=== PATIENT | male | born 1935 | race Caucasian/White ===

== ENCOUNTER 2016-10-26 18:08 | Emergency (ER) | payer OTHER ==
[2016-10-26 18:39] VITALS: TEMP 98.8
[2016-10-26 18:49] LABS: BASOPHILS % (AUTO) 0 % (0-3); EOSINOPHILS % (AUTO) 1 % (0-9); HEMATOCRIT 35 % (39-53); MEAN CORPUSCULAR HGB CONC 34.4 gm/dl (32.0-36.0); MEAN CORPUSCULAR VOLUME 86 fL (80-100); MONOCYTES % (AUTO) 9.9 % (0-12); NEUTROPHILS % (AUTO) 76.5 % (37-80)
[2016-10-26 18:57] LABS: CALCIUM 8.2 mg/dl (8.5-10.1); POTASSIUM 3.8 mMol/L (3.5-5.1)
[2016-10-26 19:26] VITALS: BP 144/80; PULSE 75; RESP 16; O2SAT 93
== END 2016-10-26 19:55 | disposition home or self-care (01) | DRG 641 ==
LOC: ED 18:08
DX: E87.1 Hypo-osmolality and hyponatremia (principal); I25.10 Atherosclerotic heart disease of native coronary artery without angina pectoris
CPT/HCPCS: 36415; 80048; 85025; 93005; 99282; 99284

== ENCOUNTER 2016-10-28 11:56 | Emergency (ER) | payer OTHER ==
[2016-10-28 12:14] VITALS: RESP 18; TEMP 98
[2016-10-28 13:44] LABS: ALBUMIN 2.7 gm/dl (3.4-5.0); CALCIUM 8.2 mg/dl (8.5-10.1); POTASSIUM 3.7 mMol/L (3.5-5.1)
[2016-10-28 14:33] VITALS: BP 150/82; PULSE 62; O2SAT 97
== END 2016-10-28 14:17 | disposition home or self-care (01) | DRG 153 ==
LOC: ED 11:56
DX: J11.1 Influenza due to unidentified influenza virus with other respiratory manifestations (principal)
CPT/HCPCS: 36415; 80053; 99283

== ENCOUNTER 2016-10-30 03:18 | Inpatient (IN) | payer OTHER ==
[2016-10-30] MEDS ORDERED: ALBUTEROL NEB SOL 2.5MG/3ML 1 VIAL SOL NEB ONE (04:06)
[2016-10-30 04:13] LABS: APPEARANCE,URINE Clear; BILIRUBIN,URINE NEGATIVE (NEGATIVE); COLOR,URINE Yellow; GLUCOSE, URINE (UA) NEGATIVE (NEGATIVE); KETONES,URINE NEGATIVE (NEGATIVE); LEUKOCYTE ESTERASE ,URINE NEGATIVE (NEGATIVE); NITRATE,URINE NEGATIVE (NEGATIVE); OCCULT BLOOD,URINE NEGATIVE (NEG-TRACE)
[2016-10-30 04:14] LABS: BASOPHILS % (AUTO) 1 % (0-3); EOSINOPHILS % (AUTO) 0 % (0-9); HEMATOCRIT 37 % (39-53); MEAN CORPUSCULAR HGB CONC 35.7 gm/dl (32.0-36.0); MEAN CORPUSCULAR VOLUME 84 fL (80-100); MONOCYTES % (AUTO) 10.8 % (0-12); NEUTROPHILS % (AUTO) 72.2 % (37-80)
[2016-10-30] MEDS ORDERED: DEXTROSE 50% 1 VIAL SOL IV ONE ×2 (04:20→04:21)
[2016-10-30] MEDS: SODIUM CHLORIDE 0.9% FLUSH 10 ML SOL IV PRN ×3 (04:23→23:21)
[2016-10-30 04:26] LABS: ALBUMIN 2.9 gm/dl (3.4-5.0); ALT 24 IU/L (14-63); CALCIUM 8.4 mg/dl (8.5-10.1); GLOM FILT RATE 56 mL/min (>60); SODIUM 129 mMol/L (136-145)
[2016-10-30] MEDS ORDERED: ALBUTEROL/IPRATROPIUM 1 VIAL SOL ONE (04:28)
[2016-10-30 04:31] LABS: RBC,URINE 0-1 (0-3AV/HPF); WBC,URINE 0-1 (0-5AV/HPF)
[2016-10-30] MEDS ORDERED: SODIUM CHLORIDE/KCL 20MEQ 1,000 ML IV SCH (05:45)
[2016-10-30] MEDS ORDERED: DOCUSATE SODIUM 100 MG SGL PO PRN (05:50)
[2016-10-30] MEDS ORDERED: OMEPRAZOLE 20 MG CAPSULE PO PRN (05:50)
[2016-10-30] MEDS ORDERED: ATORVASTATIN 10 MG TAB PO SCH ×2 (06:00→21:00)
[2016-10-30] MEDS ORDERED: PANTOPRAZOLE SODIUM 40 MG ECT PO PRN (06:14)
[2016-10-30] MEDS ORDERED: DEXTROSE 50% 1 VIAL SOL IV PRN (08:59)
[2016-10-30] MEDS ORDERED: DOXYCYCLINE 100 MG TAB PO SCH (09:00)
[2016-10-30] MEDS ORDERED: HYDROCHLOROTHIAZIDE 25 MG TAB PO SCH (09:00)
[2016-10-30] MEDS: LISINOPRIL 20 MG TAB PO SCH (09:26)
[2016-10-30] MEDS: POTASSIUM CHLORIDE 10 MEQ TER PO SCH ×2 (09:26→20:57)
[2016-10-30] MEDS: METOPROLOL TARTRATE 50 MG TAB PO SCH ×2 (09:26→20:57)
[2016-10-30] MEDS ORDERED: MAGNESIUM SULFATE 5 GM/10 ML SOL IV ONE (11:15)
[2016-10-30] MEDS: MAGNESIUM OXIDE 400 MG TAB PO SCH ×4 (12:22→23:20)
[2016-10-30] MEDS ORDERED: WARFARIN SODIUM 5 MG TAB PO SCH (18:00)
[2016-10-30] MEDS ORDERED: WARFARIN SODIUM 7.5 MG TAB PO SCH (18:00)
[2016-10-31 07:22] LABS: BASOPHILS % (AUTO) 1 % (0-3); EOSINOPHILS % (AUTO) 1 % (0-9); HEMATOCRIT 39 % (39-53); MEAN CORPUSCULAR HGB CONC 35.2 gm/dl (32.0-36.0); MEAN CORPUSCULAR VOLUME 86 fL (80-100); MONOCYTES % (AUTO) 9.8 % (0-12); NEUTROPHILS % (AUTO) 63.9 % (37-80)
[2016-10-31 07:39] LABS: CALCIUM 8.3 mg/dl (8.5-10.1); MAGNESIUM 1.8 mg/dl (1.8-2.4)
[2016-10-31] MEDS: POTASSIUM CHLORIDE 10 MEQ TER PO SCH ×2 (09:19→21:43)
[2016-10-31] MEDS: METOPROLOL TARTRATE 50 MG TAB PO SCH ×2 (09:20→21:43)
[2016-10-31] MEDS: FUROSEMIDE 20 MG TAB PO SCH (09:20)
[2016-10-31] MEDS: METFORMIN HYDROCHLORIDE 500 MG TAB PO SCH ×2 (09:21→21:43)
[2016-10-31] MEDS: LISINOPRIL 20 MG TAB PO SCH (09:21)
[2016-10-31] MEDS ORDERED: WARFARIN SODIUM 7.5 MG TAB PO SCH (18:00)
[2016-10-31] MEDS ORDERED: WARFARIN SODIUM 5 MG TAB PO ONE (18:00)
[2016-10-31 21:40] VITALS: TEMP 97
[2016-11-01 07:13] LABS: BASOPHILS % (AUTO) 1 % (0-3); EOSINOPHILS % (AUTO) 2 % (0-9); HEMATOCRIT 39 % (39-53); MEAN CORPUSCULAR HGB CONC 34.4 gm/dl (32.0-36.0); MEAN CORPUSCULAR VOLUME 86 fL (80-100); MONOCYTES % (AUTO) 10.2 % (0-12); NEUTROPHILS % (AUTO) 60.8 % (37-80)
[2016-11-01 07:17] LABS: CALCIUM 8.5 mg/dl (8.5-10.1); POTASSIUM 4.6 mMol/L (3.5-5.1)
[2016-11-01 08:20] VITALS: BP 153/88; PULSE 63; RESP 20
[2016-11-01] MEDS: POTASSIUM CHLORIDE 10 MEQ TER PO SCH (08:40)
[2016-11-01] MEDS: METOPROLOL TARTRATE 50 MG TAB PO SCH (08:40)
[2016-11-01] MEDS: METFORMIN HYDROCHLORIDE 500 MG TAB PO SCH (08:41)
[2016-11-01] MEDS: LISINOPRIL 20 MG TAB PO SCH (08:41)
[2016-11-01] MEDS: FUROSEMIDE 20 MG TAB PO SCH (08:54)
[2016-11-01 09:59] VITALS: O2SAT 98
== END 2016-11-01 10:45 | disposition home or self-care (01) | DRG 637 ==
LOC: ED 03:18 → ACUTE CARE 05:04
PROVIDERS: ADMIT Emergency Medicine; ATTEND Emergency Medicine
PROC: F02Z1ZZ Dressing Assessment (ICD-10-PCS; principal; 2016-10-30)
PROC: F02Z3ZZ Grooming/Personal Hygiene Assessment (ICD-10-PCS; 2016-10-30)
PROC: F02Z0ZZ Bathing/Showering Assessment (ICD-10-PCS; 2016-10-30)
PROC: F01ZDZZ Gait and/or Balance Assessment (ICD-10-PCS; 2016-10-30)
PROC: F01ZBZZ Bed Mobility Assessment (ICD-10-PCS; 2016-10-30)
PROC: F01ZCZZ Transfer Assessment (ICD-10-PCS; 2016-10-30)
DX: E11.649 Type 2 diabetes mellitus with hypoglycemia without coma (principal); J18.9 Pneumonia, unspecified organism; E46 Unspecified protein-calorie malnutrition; E88.09 Other disorders of plasma-protein metabolism, not elsewhere classified; I50.9 Heart failure, unspecified; R54 Age-related physical debility; Z79.84 Long term (current) use of oral hypoglycemic drugs; F32.9 Major depressive disorder, single episode, unspecified; I95.1 Orthostatic hypotension; Z68.24 Body mass index [BMI] 24.0-24.9, adult; R41.0 Disorientation, unspecified; E86.0 Dehydration; E87.1 Hypo-osmolality and hyponatremia; I25.10 Atherosclerotic heart disease of native coronary artery without angina pectoris; I48.91 Unspecified atrial fibrillation
CPT/HCPCS: 36415; 71020; 80048; 80053; 81001; 82962; 83735; 83880; 84484; 85025; 85610; 93005; 94760; 96374; 99222; 99285; J7620

== ENCOUNTER 2017-08-19 12:26 | Emergency (ER) | payer MEDICARE, BC, OTHER ==
[2017-08-19 12:46] LABS: BASOPHILS % (AUTO) 1 % (0-3); EOSINOPHILS % (AUTO) 2 % (0-9); HEMATOCRIT 41 % (39-53); MEAN CORPUSCULAR VOLUME 85 fL (80-100); MONOCYTES % (AUTO) 9.5 % (0-12); NEUTROPHILS % (AUTO) 63.5 % (37-80)
[2017-08-19 13:00] LABS: ALBUMIN 3.6 gm/dl (3.4-5.0); CALCIUM 8.6 mg/dl (8.5-10.1); POTASSIUM 4.1 mMol/L (3.5-5.1)
[2017-08-19 13:40] VITALS: BP 174/83; PULSE 77; RESP 16; TEMP 98.2; O2SAT 98
== END 2017-08-19 13:58 | disposition home or self-care (01) | DRG 948 ==
LOC: ED 12:26
DX: R41.0 Disorientation, unspecified (principal)
CPT/HCPCS: 70450; 80053; 85025; 85610; 99284

== ENCOUNTER 2017-09-14 09:00 | Emergency (ER) | payer MEDICARE, BC, OTHER ==
[2017-09-14 09:06] VITALS: TEMP 97.5
[2017-09-14] MEDS ORDERED: ACETAMINOPHEN 325 MG PO ONE (09:11)
[2017-09-14 09:34] LABS: BASOPHILS % (AUTO) 1 % (0-3); EOSINOPHILS % (AUTO) 2 % (0-9); HEMATOCRIT 40 % (39-53); MEAN CORPUSCULAR HGB CONC 31.3 gm/dl (32.0-36.0); MEAN CORPUSCULAR VOLUME 87 fL (80-100); MONOCYTES % (AUTO) 8.5 % (0-12); NEUTROPHILS % (AUTO) 66.5 % (37-80)
[2017-09-14 09:41] VITALS: RESP 20
[2017-09-14 09:49] LABS: APPEARANCE,URINE Clear; BILIRUBIN,URINE NEGATIVE (NEGATIVE); COLOR,URINE Yellow; GLUCOSE, URINE (UA) NEGATIVE (NEGATIVE); KETONES,URINE TRACE (NEGATIVE); LEUKOCYTE ESTERASE ,URINE NEGATIVE (NEGATIVE); NITRATE,URINE NEGATIVE (NEGATIVE); OCCULT BLOOD,URINE TRACE INTACT (NEG-TRACE); PH,URINE 5.5
[2017-09-14 09:51] LABS: ALBUMIN 3.3 gm/dl (3.4-5.0); ALKALINE PHOSPHATASE 84 IU/L (46-116); ALT 31 IU/L (14-63); AST 28 IU/L (15-37); BILIRUBIN,TOTAL 0.6 mg/dl (0.2-1.0); BLOOD UREA NITROGEN 20 mg/dl (7-18); CALCIUM 8.4 mg/dl (8.5-10.1); CREATININE 1.37 mg/dl (0.80-1.30); GLOM FILT RATE 50 mL/min (>60); GLUCOSE 207 mg/dl (74-106); POTASSIUM 4.4 mMol/L (3.5-5.1); SODIUM 139 mMol/L (136-145)
[2017-09-14 09:59] LABS: RBC,URINE 0-1 (0-3AV/HPF)
[2017-09-14 10:00] LABS: WBC,URINE 0-1 (0-5AV/HPF)
[2017-09-14] MEDS ORDERED: SODIUM CHLORIDE 0.9% 1000ML 1,000 ML IV SCH (10:30)
[2017-09-14] MEDS ORDERED: IBUPROFEN 200 MG/10 ML SUS PO ONE (10:49)
[2017-09-14] MEDS ORDERED: IBUPROFEN 600 MG TAB ONE (11:16)
[2017-09-14 13:01] VITALS: O2SAT 98
[2017-09-14 13:02] VITALS: BP 166/86; PULSE 81
== END 2017-09-14 12:50 | disposition home or self-care (01) | DRG 641 ==
LOC: ED 09:00
DX: E86.0 Dehydration (principal); E11.9 Type 2 diabetes mellitus without complications; R41.0 Disorientation, unspecified; R51 Headache; Z79.01 Long term (current) use of anticoagulants
CPT/HCPCS: 70450; 80053; 81001; 84484; 85025; 85610; 85730; 87088; 93005; 96365; 96366; 99284; 99291; A9270-GY

== ENCOUNTER 2017-09-28 14:54 | Observation (INO) | payer MEDICARE, BC, OTHER ==
[2017-09-28 15:44] LABS: BASOPHILS % (AUTO) 1 % (0-3); EOSINOPHILS % (AUTO) 1 % (0-9); HEMATOCRIT 41 % (39-53); HEMOGLOBIN 13.2 gm/dl (13.5-17.7); LYMPHOCYTES % (AUTO) 25.3 % (10-50); MEAN CORPUSCULAR HEMOGLOBIN 27.7 pg (27.0-32.0); MEAN CORPUSCULAR VOLUME 87 fL (80-100); MONOCYTES % (AUTO) 9.5 % (0-12); NEUTROPHILS % (AUTO) 63.1 % (37-80)
[2017-09-28 15:53] LABS: CALCIUM 8.4 mg/dl (8.5-10.1); CARBON DIOXIDE 27.6 mEq/L (21-32); CREATININE 1.73 mg/dl (0.80-1.30); POTASSIUM 3.9 mMol/L (3.5-5.1)
[2017-09-28] MEDS: SODIUM CHLORIDE 0.9% 1000ML 1,000 ML IV SCH (16:45)
[2017-09-28] MEDS: NOVOLOG FLEXPEN SC SCH ×2 (17:52→21:34)
[2017-09-28 20:30] VITALS: RESP 18
[2017-09-28] MEDS ORDERED: ATORVASTATIN 10 MG TAB PO SCH (21:00)
[2017-09-28] MEDS ORDERED: METOPROLOL TARTRATE 50 MG TAB PO SCH (21:00)
[2017-09-29] MEDS: SODIUM CHLORIDE 0.9% 1000ML 1,000 ML IV SCH (02:49)
[2017-09-29 07:51] VITALS: BP 158/78; PULSE 71; TEMP 97.4; O2SAT 97
[2017-09-29] MEDS ORDERED: GLIPIZIDE 10 MG TABLET PO SCH (08:30)
[2017-09-29] MEDS ORDERED: LISINOPRIL 20 MG TAB PO SCH (09:00)
[2017-09-29] MEDS ORDERED: CHLORTHALIDONE 25 MG PO SCH (09:00)
[2017-09-29] MEDS ORDERED: METFORMIN HYDROCHLORIDE 500 MG TAB PO SCH (09:00)
[2017-09-29] MEDS ORDERED: WARFARIN SODIUM 5 MG TAB PO SCH (18:00)
== END 2017-09-29 08:40 | disposition home or self-care (01) | DRG 641 ==
LOC: ED 14:54 → ACUTE CARE 16:47 → UNDOADMOB 16:47 → ACUTE CARE 17:35
PROVIDERS: ADMIT Family Medicine; ATTEND Family Medicine
DX: E86.0 Dehydration (principal); R20.0 Anesthesia of skin; R79.89 Other specified abnormal findings of blood chemistry
CPT/HCPCS: 36415; 70450; 80048; 82962; 85025; 85610; 85730; 93005; 99282; A9270-GY

== ENCOUNTER 2018-09-18 09:11 | Inpatient (IN) | payer OTHER ==
[2018-09-18] MEDS: SODIUM CHLORIDE 0.9% FLUSH 10 ML SOL IV PRN (17:25)
[2018-09-18] MEDS ORDERED: OMEPRAZOLE 20 MG CAPSULE PO PRN (17:26)
[2018-09-18] MEDS ORDERED: ALBUTEROL NEB SOL 2.5MG/3ML 1 VIAL SOL NEB PRN (17:29)
[2018-09-18] MEDS: SODIUM CHLORIDE 0.9% 1000ML 1,000 ML IV SCH (17:30)
[2018-09-18] MEDS: NOVOLOG FLEXPEN SC SCH ×2 (19:43→21:29)
[2018-09-18] MEDS: VICTOZA SQ SCH (19:47)
[2018-09-18] MEDS: WARFARIN SODIUM 5 MG TAB PO SCH (19:48)
[2018-09-18] MEDS: ATORVASTATIN 10 MG TAB PO SCH (19:49)
[2018-09-18] MEDS ORDERED: LIRAGLUTIDE SQ SCH (21:00)
[2018-09-18] MEDS: METOPROLOL TARTRATE 50 MG TAB PO SCH (21:26)
[2018-09-19] MEDS: SODIUM CHLORIDE 0.9% 1000ML 1,000 ML IV SCH ×2 (03:33→13:45)
[2018-09-19 07:26] LABS: CALCIUM 8.1 mg/dl (8.5-10.1); CREATININE 1.11 mg/dl (0.80-1.30); POTASSIUM 3.5 mMol/L (3.5-5.1)
[2018-09-19 07:44] LABS: INR 2.57 (0.86-1.12)
[2018-09-19] MEDS ORDERED: GUAIFENESIN 200 MG/10 ML SOL PO PRN (08:07)
[2018-09-19] MEDS: NOVOLOG FLEXPEN SC SCH ×4 (08:43→21:23)
[2018-09-19] MEDS: LOSARTAN POTASSIUM 50 MG TAB PO SCH (08:43)
[2018-09-19] MEDS: PANTOPRAZOLE SODIUM 40 MG ECT PO SCH (08:44)
[2018-09-19] MEDS: METFORMIN HYDROCHLORIDE 500 MG TAB PO SCH (08:44)
[2018-09-19] MEDS: GLIPIZIDE 5 MG TAB PO SCH ×2 (08:44→16:41)
[2018-09-19] MEDS: METOPROLOL TARTRATE 50 MG TAB PO SCH ×2 (08:44→20:19)
[2018-09-19] MEDS ORDERED: WARFARIN SODIUM 5 MG TAB PO SCH ×2 (09:00→18:00)
[2018-09-19] MEDS ORDERED: VALSARTAN 80 MG TAB PO SCH ×2 (09:00)
[2018-09-19] MEDS ORDERED: FLUTICASONE PROPIONATE SPR NAS PRN (09:00)
[2018-09-19] MEDS ORDERED: METFORMIN HYDROCHLORIDE 500 MG TAB PO SCH (09:00)
[2018-09-19] MEDS: ASPIRIN EC 81 MG PO SCH (16:41)
[2018-09-19] MEDS: VICTOZA SQ SCH (17:18)
[2018-09-19] MEDS: WARFARIN SODIUM 5 MG TAB PO SCH (18:46)
[2018-09-20] MEDS: SODIUM CHLORIDE 0.9% 1000ML 1,000 ML IV SCH (00:13)
[2018-09-20 07:40] LABS: INR 2.63 (0.86-1.12)
[2018-09-20 07:41] LABS: CALCIUM 7.6 mg/dl (8.5-10.1); CARBON DIOXIDE 26.6 mEq/L (21-32); CREATININE 1.02 mg/dl (0.80-1.30); POTASSIUM 3.3 mMol/L (3.5-5.1)
[2018-09-20] MEDS: NOVOLOG FLEXPEN SC SCH ×3 (08:25→17:47)
[2018-09-20] MEDS: LOSARTAN POTASSIUM 50 MG TAB PO SCH ×3 (08:46→11:49)
[2018-09-20] MEDS: GLIPIZIDE 5 MG TAB PO SCH ×2 (08:46→17:51)
[2018-09-20] MEDS: PANTOPRAZOLE SODIUM 40 MG ECT PO SCH (08:46)
[2018-09-20] MEDS: METOPROLOL TARTRATE 50 MG TAB PO SCH ×2 (08:46→20:34)
[2018-09-20] MEDS: METFORMIN HYDROCHLORIDE 500 MG TAB PO SCH (08:46)
[2018-09-20] MEDS: AMOXIL/CLAVULANATE 400/5 ML PDR PO SCH ×2 (09:19→20:32)
[2018-09-20] MEDS: POTASSIUM CHLORIDE 10 MEQ TER PO SCH ×3 (09:19→20:33)
[2018-09-20] MEDS: ACETAMINOPHEN 500 MG 500 MG TAB PO PRN (09:19)
[2018-09-20] MEDS: SODIUM CHLORIDE 0.9% FLUSH 10 ML SOL IV PRN (15:47)
[2018-09-20] MEDS: ASPIRIN EC 81 MG PO SCH ×2 (17:50→17:57)
[2018-09-20] MEDS: ATORVASTATIN 10 MG TAB PO SCH (17:51)
[2018-09-20] MEDS: VICTOZA SQ SCH (17:51)
[2018-09-20] MEDS: WARFARIN SODIUM 2.5 MG TAB PO SCH (17:52)
[2018-09-20] MEDS: AMLODIPINE 5 MG TAB PO SCH (17:55)
[2018-09-20] MEDS: SODIUM CHLORIDE 0.9% FLUSH 10 ML SOL IV SCH ×2 (18:59→20:36)
[2018-09-20] MEDS: FLUTICASONE PROPIONATE SPR NAS SCH (20:31)
[2018-09-21] MEDS: NOVOLOG FLEXPEN SC SCH ×5 (06:25→21:16)
[2018-09-21] MEDS: SODIUM CHLORIDE 0.9% FLUSH 10 ML SOL IV SCH ×4 (06:26→23:09)
[2018-09-21 07:41] LABS: BASOPHILS % (AUTO) 1 % (0-3); EOSINOPHILS % (AUTO) 1 % (0-9); HEMATOCRIT 39 % (39-53); HEMOGLOBIN 12.5 gm/dl (13.5-17.7); LYMPHOCYTES % (AUTO) 13.5 % (10-50); MEAN CORPUSCULAR HEMOGLOBIN 28.1 pg (27.0-32.0); MEAN CORPUSCULAR VOLUME 88 fL (80-100); MONOCYTES % (AUTO) 9.9 % (0-12)
[2018-09-21 07:51] LABS: CALCIUM 8.4 mg/dl (8.5-10.1); CARBON DIOXIDE 28.2 mEq/L (21-32); CREATININE 1.03 mg/dl (0.80-1.30); POTASSIUM 4.1 mMol/L (3.5-5.1)
[2018-09-21] MEDS ORDERED: SODIUM CHLORIDE 0.9% 1000ML 1,000 ML IV ONE (08:50)
[2018-09-21] MEDS: FLUTICASONE PROPIONATE SPR NAS SCH ×2 (09:03→20:10)
[2018-09-21] MEDS: LOSARTAN POTASSIUM 50 MG TAB PO SCH (09:03)
[2018-09-21] MEDS: METOPROLOL TARTRATE 50 MG TAB PO SCH ×2 (09:03→20:12)
[2018-09-21] MEDS: GLIPIZIDE 5 MG TAB PO SCH ×2 (09:03→16:56)
[2018-09-21] MEDS: PANTOPRAZOLE SODIUM 40 MG ECT PO SCH (09:04)
[2018-09-21] MEDS: AMOXIL/CLAVULANATE 400/5 ML PDR PO SCH ×2 (09:04→20:11)
[2018-09-21] MEDS: AMLODIPINE 5 MG TAB PO SCH (09:04)
[2018-09-21] MEDS: ACETAMINOPHEN 500 MG 500 MG TAB PO PRN (09:04)
[2018-09-21] MEDS: METFORMIN HYDROCHLORIDE 500 MG TAB PO SCH (09:04)
[2018-09-21] MEDS: SODIUM CHLORIDE 0.9% 1000ML 1,000 ML IV SCH ×3 (10:35→20:10)
[2018-09-21 14:04] LABS: INR 2.46 (0.86-1.12)
[2018-09-21] MEDS: VICTOZA SQ SCH (17:24)
[2018-09-21] MEDS: WARFARIN SODIUM 2.5 MG TAB PO SCH (17:24)
[2018-09-22] MEDS: SODIUM CHLORIDE 0.9% 1000ML 1,000 ML IV SCH ×2 (02:01→07:50)
[2018-09-22 06:54] LABS: BASOPHILS % (AUTO) 1 % (0-3); EOSINOPHILS % (AUTO) 1 % (0-9); HEMATOCRIT 38 % (39-53); HEMOGLOBIN 12.7 gm/dl (13.5-17.7); LYMPHOCYTES % (AUTO) 11.8 % (10-50); MEAN CORPUSCULAR HEMOGLOBIN 29.7 pg (27.0-32.0); MEAN CORPUSCULAR HGB CONC 33.6 gm/dl (32.0-36.0); MEAN CORPUSCULAR VOLUME 88 fL (80-100); MONOCYTES % (AUTO) 11.4 % (0-12); NEUTROPHILS % (AUTO) 74.7 % (37-80)
[2018-09-22 07:06] LABS: CALCIUM 8.1 mg/dl (8.5-10.1); CARBON DIOXIDE 24.3 mEq/L (21-32); CREATININE 0.98 mg/dl (0.80-1.30); POTASSIUM 3.6 mMol/L (3.5-5.1)
[2018-09-22 07:40] LABS: INR 2.24 (0.86-1.12)
[2018-09-22] MEDS: SODIUM CHLORIDE 0.9% FLUSH 10 ML SOL IV SCH ×2 (07:59→17:43)
[2018-09-22] MEDS: NOVOLOG FLEXPEN SC SCH ×4 (08:19→21:18)
[2018-09-22] MEDS: FLUTICASONE PROPIONATE SPR NAS SCH ×2 (08:53→21:22)
[2018-09-22] MEDS: METFORMIN HYDROCHLORIDE 500 MG TAB PO SCH (08:53)
[2018-09-22] MEDS: METOPROLOL TARTRATE 50 MG TAB PO SCH ×2 (08:53→21:22)
[2018-09-22] MEDS: GLIPIZIDE 5 MG TAB PO SCH ×2 (08:54→17:45)
[2018-09-22] MEDS: LOSARTAN POTASSIUM 50 MG TAB PO SCH (08:55)
[2018-09-22] MEDS: PANTOPRAZOLE SODIUM 40 MG ECT PO SCH (08:57)
[2018-09-22] MEDS: AMLODIPINE 5 MG TAB PO SCH (08:59)
[2018-09-22] MEDS: AMOXIL/CLAVULANATE 400/5 ML PDR PO SCH ×2 (09:03→21:20)
[2018-09-22] MEDS: ACETAMINOPHEN 500 MG 500 MG TAB PO PRN (09:41)
[2018-09-22] MEDS: VICTOZA SQ SCH (17:42)
[2018-09-22] MEDS: WARFARIN SODIUM 2.5 MG TAB PO SCH (17:42)
[2018-09-22] MEDS: ATORVASTATIN 10 MG TAB PO SCH (17:43)
[2018-09-23 07:20] LABS: BASOPHILS % (AUTO) 1 % (0-3); EOSINOPHILS % (AUTO) 2 % (0-9); HEMATOCRIT 36 % (39-53); LYMPHOCYTES % (AUTO) 16.9 % (10-50); MEAN CORPUSCULAR HEMOGLOBIN 29.2 pg (27.0-32.0); MEAN CORPUSCULAR HGB CONC 33.4 gm/dl (32.0-36.0); MEAN CORPUSCULAR VOLUME 88 fL (80-100); MONOCYTES % (AUTO) 10.9 % (0-12); NEUTROPHILS % (AUTO) 69.4 % (37-80)
[2018-09-23 07:24] LABS: CALCIUM 8.2 mg/dl (8.5-10.1); CARBON DIOXIDE 26.1 mEq/L (21-32); CREATININE 1.09 mg/dl (0.80-1.30); POTASSIUM 3.4 mMol/L (3.5-5.1)
[2018-09-23] MEDS: NOVOLOG FLEXPEN SC SCH (07:44)
[2018-09-23 08:00] LABS: INR 2.02 (0.86-1.12)
[2018-09-23] MEDS: FLUTICASONE PROPIONATE SPR NAS SCH (08:10)
[2018-09-23] MEDS: AMOXIL/CLAVULANATE 400/5 ML PDR PO SCH (08:58)
[2018-09-23] MEDS: LOSARTAN POTASSIUM 50 MG TAB PO SCH (08:59)
[2018-09-23] MEDS: PANTOPRAZOLE SODIUM 40 MG ECT PO SCH (09:00)
[2018-09-23] MEDS: METOPROLOL TARTRATE 50 MG TAB PO SCH (09:00)
[2018-09-23] MEDS: GLIPIZIDE 5 MG TAB PO SCH (09:00)
[2018-09-23] MEDS: METFORMIN HYDROCHLORIDE 500 MG TAB PO SCH (09:00)
[2018-09-23] MEDS: AMLODIPINE 5 MG TAB PO SCH (09:01)
[2018-09-23 09:08] VITALS: BP 163/93; RESP 16; TEMP 98.4; O2SAT 98
[2018-09-23 09:38] VITALS: PULSE 89
[2018-09-23] MEDS: POTASSIUM CHLORIDE 10 MEQ TER PO SCH ×2 (10:19→12:46)
== END 2018-09-23 12:55 | disposition home or self-care (01) | DRG 641 ==
LOC: EDSTATUS 09:11 → ACUTE CARE 16:57 → OBSVTOIN 16:57 → INTOOBSV 16:57 → UNDOADMOB 16:57 → UNDODISIN 09-23 12:55
PROVIDERS: ADMIT Family Medicine; ATTEND Family Medicine
DX: E87.1 Hypo-osmolality and hyponatremia (principal); J20.9 Acute bronchitis, unspecified; E11.9 Type 2 diabetes mellitus without complications; I48.2 Chronic atrial fibrillation; Z79.01 Long term (current) use of anticoagulants; I10 Essential (primary) hypertension; J01.90 Acute sinusitis, unspecified; E87.6 Hypokalemia; R06.2 Wheezing
CPT/HCPCS: 36415; 71046; 80048; 82962; 85025; 85610; 94664; J7613; A9270-GY; J1815